=== PATIENT | female | born 2000 | race Hispanic/Latino ===

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

== ENCOUNTER 2020-08-04 17:30 | Emergency (ER) | payer SELFPAY, OTHER ==
[2020-08-04] MEDS ORDERED: Ibuprofen 200 MG TAB ONE (18:20)
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
== END 2020-08-04 20:20 | disposition home or self-care (01) ==
LOC: ERS 17:30
DX: S40.012A Contusion of left shoulder, initial encounter (principal); M79.10 Myalgia, unspecified site; M54.2 Cervicalgia; V89.2XXA Person injured in unspecified motor-vehicle accident, traffic, initial encounter
CPT/HCPCS: 71046

== ENCOUNTER 2020-11-03 20:07 | Emergency (ER) | payer SELFPAY, OTHER ==
[2020-11-04 02:39] LABS: SARS-CoV-2 MS2 Positive; SARS-CoV-2 N Gene Positive; SARS-CoV-2 S Gene Positive; SARS-CoV-2 by NAA DETECTED (NotDetected); SARS-CoV-2 orf1ab Positive
== END 2020-11-03 20:11 | disposition home or self-care (01) ==
LOC: ERS 20:07
DX: O98.512 Other viral diseases complicating pregnancy, second trimester (principal); U07.1 COVID-19; O99.282 Endocrine, nutritional and metabolic diseases complicating pregnancy, second trimester; E05.90 Thyrotoxicosis, unspecified without thyrotoxic crisis or storm; Z3A.15 15 weeks gestation of pregnancy
CPT/HCPCS: 87635; 99283; U0003